=== PATIENT | female | born 1955 | race Caucasian/White ===

== ENCOUNTER 2016-12-02 05:03 | Day surgery (SDC) | payer OTHER ==
[2016-12-02] MEDS ORDERED: LACTATED RINGERS 1,000 ML ONE (05:37)
[2016-12-02] MEDS ORDERED: IV START KIT ONE (05:37)
[2016-12-02] MEDS ORDERED: CEFAZOLIN SODIUM 2 GRAM PREMIX 100 ML IV PRN (05:45)
[2016-12-02] MEDS ORDERED: CEFAZOLIN SODIUM 2 GRAM PREMIX 100 ML IV ONE (06:42)
[2016-12-02] MEDS ORDERED: ROCURONIUM BROMIDE 10 MG/ML DOSE IV ONE (06:47)
[2016-12-02] MEDS ORDERED: DEXAMETHASONE SOD PHOS 4 MG/1 ML VIAL ONE (06:47)
[2016-12-02] MEDS ORDERED: LIDOCAINE 2% (MULTI DOSE) 10 ML VIAL ONE (06:47)
[2016-12-02] MEDS ORDERED: KETOROLAC TROMETHAMINE 30 MG/ML 1 ML VIAL ONE (06:47)
[2016-12-02] MEDS ORDERED: ONDANSETRON 4 MG/2ML 2 ML VIAL ONE (06:47)
[2016-12-02] MEDS ORDERED: PROPOFOL 20 ML IV ONE (06:47)
[2016-12-02] MEDS ORDERED: MIDAZOLAM HCL 5 MG/5 ML VIAL ONE (06:48)
[2016-12-02] MEDS ORDERED: FENTANYL 250 MCG/5 ML AMP ONE (06:48)
[2016-12-02] MEDS ORDERED: SODIUM CHLORIDE 0.9% 50 ML ONE (06:54)
[2016-12-02] MEDS ORDERED: BUPIVACAINE 0.5% W/EPI SDV 30 ML VIAL ONE (06:54)
[2016-12-02] MEDS ORDERED: IOPAMIDOL 300 (61%) 30 ML SDV ONE (06:54)
[2016-12-02] MEDS ORDERED: EPHEDRINE SULFATE UD SYR 25 MG 25 MG/5 ML SYRINGE IV ONE (07:28)
[2016-12-02] MEDS ORDERED: PHENYLEPHRINE 10 MG/1 ML (1%) VIAL ONE (07:38)
[2016-12-02] MEDS ORDERED: PROMETHAZINE HCL 25 MG/ML VIAL IM PRN (07:43)
[2016-12-02] MEDS ORDERED: HYDROMORPHONE HCL 1 MG/ML SYRINGE IV PRN ×2 (07:43→09:14)
[2016-12-02] MEDS ORDERED: ONDANSETRON 4 MG/2ML 2 ML VIAL IV PRN ×2 (07:43→09:14)
[2016-12-02] MEDS ORDERED: FENTANYL 100 MCG/2 ML VIAL IV PRN (07:43)
[2016-12-02] MEDS ORDERED: LACTATED RINGERS 1,000 ML IV SCH (07:45)
[2016-12-02] MEDS ORDERED: OXYCODONE HCL 5 MG TABLET PO PRN (09:14)
[2016-12-02] MEDS ORDERED: ACETAMINOPHEN 325 MG TABLET PO PRN (09:14)
--- NOTE | 2016-12-02 12:31 | OP ---
Ryann Moran [id number] DATE OF SURGERY: 12/02/2016 PREOPERATIVE DIAGNOSES: Chronic cholecystitis with cholelithiasis, fatty liver. POSTOPERATIVE DIAGNOSES: Chronic cholecystitis with cholelithiasis, fatty liver. PROCEDURE: Laparoscopic cholecystectomy, laparoscopic liver biopsy. SURGEON: Sukhi Medrano MD. HOUSE MANAGER: Gela Sterling. ANESTHESIA: Raquel Hatfield, General endotracheal. INDICATION: This is a 61-year-old female who has symptoms of chronic biliary colic who has an ultrasound showing extensive cholelithiasis. There is no signs of acute cholecystitis. She also has ultrasound findings of a fatty liver. DESCRIPTION: With informed consent she was taken to the operating room where she was laid supine on the operating room table. General endotracheal anesthetic was administered. The abdomen was prepped and draped in the usual sterile fashion. Local anesthetic was administered below the umbilicus. An incision was made. The fascia was grasped with Ramiro clamps and divided with curvilinear scissors. Sutures of Vicryl were placed on the fascial edges and a Martinez port was placed. A pneumoperitoneum was created. Local anesthetic was administered in the mid epigastrium and along the right lateral abdominal wall. Incisions were made and 5 mm ports were placed. The fundus of the gallbladder was grasped and retracted cephalad. There were adhesions down along the gallbladder from omentum, this was carefully dissected free with blunt dissection. Eventually the infundibulum was retracted laterally. We dissected out a very small duct. Once it was isolated in all plains creating a critical view it actually was quite small. I decided it was not large enough to accommodate a cholangiogram catheter. Three clips were placed and it was transected leaving two clips on the stump. Next the cystic artery was identified and dissected free. Three clips were placed and it was transected leaving two clips on the stump. The gallbladder was then taken off the liver bed using electrocautery. Once it was placed within an Endocatch bag and removed through the infraumbilical port site. We had decided preoperatively to obtain a liver biopsy. The liver did appear pale. A anterior edge was blunted. Using sharp scissors I excised a portion from the edge in the left lobe just to the left of the gallbladder fossa. This was handed off to pathology. The biopsy site was cauterized with good hemostasis. The ports were removed and the pneumoperitoneum was evacuated. The infraumbilical fascial defect was closed with multiple figure of eight sutures of 0 Surgilon. The other fascial defects were small. Skin was closed with subcuticular 4-0 Monocryl. Mastisol and Steri-Strips were placed. Sterile dressings were applied. She tolerated the procedure and was taken to the recovery room in stable condition. Note was made that needle, instrument, and lap counts were reported as correct at the time of closure. JOB: [id number] CC: Gela Sterling
--- NOTE | 2016-12-05 14:17 | SURGPATH ---
[facility] [address] [place] [id number] Patient Name: MAREK AARNA MR#: [id number] : 1955 Gender: F Specimen #: [id number] Collected: 12/02/2016 Received: 12/03/2016 Reported: 12/05/2016 Submitting Phys: JESÚS ORTEGA Copy To Phys: ESTRADA BREWSTER [facility] Clinical History / Pre-Operative Diagnosis: Cholelithiasis with chronic cholecystitis, fatty liver Specimen Source / Surgical Procedure Performed: #1 gallbladder, #2 liver biopsy Interpretation: 1. GALLBLADDER, CHOLECYSTECTOMY: - CHRONIC CHOLECYSTITIS. CHOLELITHIASIS. 2. LIVER, WEDGE BIOPSY: - MILD MACROVESICULAR STEATOSIS Electronically Signed Out Jaime Silva M.D. Gross Description: 1. The specimen is received in formalin labeled with the patient's name and "gallbladder". The specimen consists of a 9.0 x 4.0 x 3.0 cm intact gallbladder. The mucosa is green and faintly velvety. There are many yellow-brown ovoid or faceted calculi up to 1.2 cm. 1A phlebotomy services representative gallbladder including cystic duct 2. The specimen is received in formalin labeled with the patient's name and "liver biopsy". The specimen consists of a 1.5 x 0.6 x 0.5 cm portion of yellow-hinojosa rubbery tissue. Submitted entirely in one cassette. OSWALD Fontaine Microscopic Description: 1. Sections show chronic inflammation of the gallbladder wall. 2. Sections show mild macrovesicular steatosis. The portal areas are unremarkable. Other than the steatosis, hepatocyte cytology and architecture is unremarkable. Iron stain is negative. Trichrome stains does not show fibrosis. 1: 51056 2: 51396, 65395, 78451 K81.1
== END 2016-12-02 11:16 | disposition home or self-care (01) ==
LOC: SDC 05:03
PROVIDERS: ATTEND Surgery
PROC: 0FT44ZZ Resection of Gallbladder, Percutaneous Endoscopic Approach (ICD-10-PCS; principal; 2016-12-02)
PROC: 0FB24ZX Excision of Left Lobe Liver, Percutaneous Endoscopic Approach, Diagnostic (ICD-10-PCS; 2016-12-02)
DX: K80.10 Calculus of gallbladder with chronic cholecystitis without obstruction (principal); K76.0 Fatty (change of) liver, not elsewhere classified; K29.00 Acute gastritis without bleeding; D64.9 Anemia, unspecified; F31.9 Bipolar disorder, unspecified; N18.9 Chronic kidney disease, unspecified; I12.9 Hypertensive chronic kidney disease with stage 1 through stage 4 chronic kidney disease, or unspecified chronic kidney disease; R10.13 Epigastric pain; K44.9 Diaphragmatic hernia without obstruction or gangrene; E07.9 Disorder of thyroid, unspecified; E78.5 Hyperlipidemia, unspecified; F32.9 Major depressive disorder, single episode, unspecified; J45.909 Unspecified asthma, uncomplicated; Z79.82 Long term (current) use of aspirin; Z88.5 Allergy status to narcotic agent; G47.33 Obstructive sleep apnea (adult) (pediatric)
CPT/HCPCS: 47562; 47379; J3010; J1100; J2370; J2250; J2405; J7120; J7030; Q9967; J2001; J0690